=== PATIENT | male | born 1970 | race Caucasian/White ===

== ENCOUNTER 2020-10-16 06:14 | Emergency (ER) | payer OTHER ==
[~2020-10-16 06:14] MED LIST: TOBRADEX EYE DRO5 ML OP
[2020-10-16] MEDS ORDERED: ERYTHROMYCIN O3.5 GM OD (06:45)
== END 2020-10-16 07:05 | disposition home or self-care (01) ==
LOC: ER1 06:14
DX: S05.01XA Injury of conjunctiva and corneal abrasion without foreign body, right eye, initial encounter (principal); E11.9 Type 2 diabetes mellitus without complications; F17.290 Nicotine dependence, other tobacco product, uncomplicated; W22.8XXA Striking against or struck by other objects, initial encounter; Y92.69 Other specified industrial and construction area as the place of occurrence of the external cause; Y99.0 Civilian activity done for income or pay
CPT/HCPCS: 99283

== ENCOUNTER 2020-11-06 15:04 | Emergency (ER) | payer OTHER ==
[~2020-11-06 15:04] MED LIST changes: +ERYTHROMYCIN O3.5 GM OD
[2020-11-06] MEDS ORDERED: CAPSAICIN60 GM TP (16:36)
[2020-11-06] MEDS ORDERED: LIDOCAINE1 EAC1 TP (16:36)
== END 2020-11-06 16:44 | disposition home or self-care (01) ==
LOC: ER1 15:04
DX: S20.312A Abrasion of left front wall of thorax, initial encounter (principal); M54.5 Low back pain; M54.6 Pain in thoracic spine; E10.9 Type 1 diabetes mellitus without complications; F17.290 Nicotine dependence, other tobacco product, uncomplicated; W22.8XXA Striking against or struck by other objects, initial encounter
CPT/HCPCS: 71046; 72072; 72100; 99283

== ENCOUNTER 2021-02-25 10:57 | Emergency (ER) | payer OTHER ==
[~2021-02-25 10:57] MED LIST changes: +CAPSAICIN60 GM TP; +LIDOCAINE1 EAC1 TP
[2021-02-25 13:09] LABS: HEMOGLOBIN 14.8 gm/dl (14.0-17.5); RED BLOOD COUNT 4.73 M/UL (4.20-5.50); WHITE BLOOD COUNT 9.3 K/UL (4.5-11.0)
[2021-02-25 13:30] LABS: BUN/CREATININE RATIO 18 (0-10)
== END 2021-02-25 16:20 | disposition home or self-care (01) ==
LOC: ER1 10:57
PROVIDERS: Emergency Medicine
DX: R07.9 Chest pain, unspecified (principal); E11.9 Type 2 diabetes mellitus without complications; F17.290 Nicotine dependence, other tobacco product, uncomplicated
CPT/HCPCS: 71045; 80053; 82550; 82553; 82962; 83690; 83735; 83874; 84484; 85025; 93005; 99285

== ENCOUNTER → 2021-05-01 | Outpatient (CLI) | payer OTHER | LOC: KOH-I 10:54 | DX: M25.521 Pain in right elbow (principal); M25.531 Pain in right wrist; R05.9 Cough, unspecified; R91.8 Other nonspecific abnormal finding of lung field; R93.6 Abnormal findings on diagnostic imaging of limbs | CPT/HCPCS: 71046; 73080; 73110 ==